=== PATIENT | male | born 1980 | race Two or more races ===

== ENCOUNTER → 2021-01-18 | Outpatient (CLI) | payer OTHER ==
[~2021-01-18] MED LIST: ISOVUE-300 61% 50ML VIAL As Ordered ONE; PROHANCE 279.3MG/ML 5ML VIAL As Ordered ONE
--- NOTE | 2021-01-18 10:23 | REP ---
INDICATION: PAIN IN LT HIP. COMPARISON: None. TECHNIQUE: Pre and post contrast 3T MRI of the left hip with left hip MRI arthrogram was performed utilizing various sequences. FINDINGS: The femoral heads are seen bilaterally with small to moderate marginal osteophytes. There is bilateral mild to moderate asymmetric hip joint space narrowing. There is bilateral subchondral acetabular T2 hyper signal and tiny cyst formation right greater than left. There is no femoral head subchondral signal abnormality. There is no hip joint effusion. There is no abnormal signal seen arising from the trochanteric tendono bursal region of either hip. Dedicated small [id number] magnified post injection images of the left hip in all 3 planes show evidence of labral irregularity and truncation with a linear hyper signal region in the mid labral body. The standard AP images of the right hip also show evidence of diffuse labral T2 hyper signal and irregularity. IMPRESSION: 1. 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 2. 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 3. Images provided on the right also show evidence of labral degeneration which could be further evaluated with MRI arthrography if clinically relevant. 4. Other findings as described above. <Electronically signed by Oziel Pate > 01/18/21 0524
--- NOTE | 2021-01-18 10:58 | REP ---
INDICATION: PAIN IN LT HIP. COMPARISON: None TECHNIQUE: The procedure was performed by JENNIFER Pichardo, under the direct supervision of Dr. Peterson. The benefits and risks of the procedure were explained to the patient, and an informed consent was obtained. Directly prior to the start of the procedure, a formal time-out was completed in the procedure room. The left femoral neck joint space was localized using fluoroscopic guidance. The skin was prepped and draped in a sterile fashion. Approximately 5 mL of 1% Lidocaine 10 mg/ml was used as a local anesthetic. Using fluoroscopic guidance, a #22 gauge spinal needle was inserted and advanced into the left femoral neck joint space. Approximately 1 mL of Isovue 300 was injected to verify placement. Twelve mL of a solution containing 20 mL of sterile saline and 0.15 mL of ProHance was injected into the joint space. The needle was removed and the patient was taken to MRI for post procedural imaging. FINDINGS: The patient tolerated the procedure well and there were no immediate complications. IMPRESSION: Fluoroscopically guided left hip MRI arthrogram injection. 0.1 minutes of fluoroscopy time was utilized for this procedure. Some fluoroscopic images are performed with last image hold technology. These images require no additional radiation. <Electronically signed by Laly Mc > 01/18/21 0296 <Electronically signed by Jian Peterson > 01/18/21 [id number]
== END ==
LOC: M RADPRO 07:04
PROVIDERS: ATTEND Technician, Other
DX: R93.7 Abnormal findings on diagnostic imaging of other parts of musculoskeletal system (principal); M25.552 Pain in left hip
CPT/HCPCS: 27093; 73723; 77002; A9576; Q9967

== ENCOUNTER → 2021-09-20 | Outpatient (CLI) | payer OTHER ==
[~2021-09-20] MED LIST changes: +LIDOCAINE 1% MDV 20ML VIAL As Ordered ONE; -PROHANCE 279.3MG/ML 5ML VIAL As Ordered ONE; +TRIAMCINOLONE ACETONIDE SUSP 40 MG/ML VIAL (J3301) As Ordered ONE
== END ==
LOC: M RADPRO 12:30
PROVIDERS: ATTEND Orthopaedic Surgery
DX: S73.122D Ischiocapsular ligament sprain of left hip, subsequent encounter (principal)
CPT/HCPCS: 20610; 77002; J3301; Q9967